=== PATIENT | female | born 1945 | race Caucasian/White ===

== ENCOUNTER → 2016-11-08 | Outpatient (CLI) | payer MEDICARE, BC ==
[~2016-11-08] MED LIST: NO HOME MEDICATIONS
== END ==
LOC: LAB 14:22
DX: J01.11 Acute recurrent frontal sinusitis (principal); R53.81 Other malaise; E55.9 Vitamin D deficiency, unspecified

== ENCOUNTER → 2017-07-31 | Outpatient (CLI) | payer MEDICARE, BC ==
[2012-01-16 14:30] VITALS: BP 140/69
== END ==
LOC: LAB 11:50
DX: I50.30 Unspecified diastolic (congestive) heart failure (principal); R23.2 Flushing

== ENCOUNTER → 2017-08-20 | Outpatient (CLI) | payer MEDICARE, BC ==
[2012-01-16 14:30] VITALS: BP 140/69
== END ==
LOC: LAB 11:46
DX: R19.7 Diarrhea, unspecified (principal)

== ENCOUNTER → 2017-08-27 | Outpatient (CLI) | payer MEDICARE, BC ==
[2012-01-16 14:30] VITALS: BP 140/69
== END ==
LOC: LAB 11:32
DX: R19.7 Diarrhea, unspecified (principal)

== ENCOUNTER → 2018-02-28 | Outpatient (CLI) | payer MEDICARE, BC ==
[~2018-02-28] VITALS: Ht 172.7 cm; Wt 68.2 kg
[2018-02-28 16:07] LABS: EOS % 0.8 % (1.0-5.0); HEMATOCRIT 41.5 % (37.0-47.0); HEMOGLOBIN 13.6 g/dL (12.5-16.0); LYMPH# 1.5 (1.50-4.00); MEAN CELL VOLUME 102 fl (78-100); MEAN CORPUSCULAR HEMOGLOBIN 33 pg (27-31); MEAN CORPUSCULAR HGB CONC 33 g/dL (33-37); MONO # 0.6 (0.20-0.80); NEU # 2.8 (1.40-6.50); PLATELET COUNT 134 K/mm3 (130-400); RED BLOOD COUNT 4.09 M/mm3 (4.10-5.30); RED CELL DISTRIBUTION WIDTH 13.5 % (11.5-14.5)
[2018-02-28 16:15] VITALS: BP 142/62
[2018-02-28 16:23] LABS: ALBUMIN 4.2 g/dL (3.5-5.0); BUN/CREATININE RATIO 38.4 (6.0-26.0); CALCIUM 9.5 mg/dL (8.4-10.2); POTASSIUM 4.4 mmol/L (3.6-5.0); TOTAL BILIRUBIN 0.3 mg/dL (0.2-1.3); TOTAL PROTEIN 7.2 g/dL (6.3-8.2)
== END ==
LOC: LAB 15:40
PROVIDERS: Nurse Practitioner Family
DX: I49.9 Cardiac arrhythmia, unspecified (principal); R07.89 Other chest pain; R09.89 Other specified symptoms and signs involving the circulatory and respiratory systems; R55 Syncope and collapse

== ENCOUNTER → 2018-03-28 | Outpatient (CLI) | payer MEDICARE, BC ==
[~2018-03-28] VITALS: Ht 172.7 cm; Wt 68.2 kg
[~2018-03-28] MED LIST changes: +ELIQUIS5 M1 PO; +METOPROLOL ER-1 EACH PO
[2018-03-28 15:21] VITALS: BP 126/74
== END ==
LOC: AMSURD 14:19
DX: I48.1 Persistent atrial fibrillation (principal)

== ENCOUNTER → 2018-04-04 | Outpatient (CLI) | payer MEDICARE, BC ==
[2018-03-28 15:21] VITALS: BP 126/74
[2018-04-04 15:50] LABS: BUN/CREATININE RATIO 28.4 (6.0-26.0); CALCIUM 8.6 mg/dL (8.4-10.2); POTASSIUM 4.5 mmol/L (3.6-5.0)
== END ==
LOC: LAB 04-01 13:51
PROVIDERS: Internal Medicine Cardiovascular Disease
DX: Z79.899 Other long term (current) drug therapy (principal)

== ENCOUNTER → 2018-07-12 | Outpatient (CLI) | payer MEDICARE, BC ==
[2018-03-28 15:21] VITALS: BP 126/74
== END ==
LOC: RAD 15:02
DX: S32.010A Wedge compression fracture of first lumbar vertebra, initial encounter for closed fracture (principal); M47.896 Other spondylosis, lumbar region; W19.XXXA Unspecified fall, initial encounter

== ENCOUNTER → 2018-07-22 | Outpatient (CLI) | payer MEDICARE, BC ==
[2018-03-28 15:21] VITALS: BP 126/74
== END ==
LOC: RAD 11:25
DX: S32.010A Wedge compression fracture of first lumbar vertebra, initial encounter for closed fracture (principal); W19.XXXA Unspecified fall, initial encounter

== ENCOUNTER → 2018-11-07 | Outpatient (CLI) | payer MEDICARE, BC ==
[2018-03-28 15:21] VITALS: BP 126/74
[2018-11-07 11:06] LABS: CALCIUM 9.1 mg/dL (8.4-10.2); POTASSIUM 4.4 mmol/L (3.6-5.0)
== END ==
LOC: LAB 10:42
PROVIDERS: Internal Medicine Cardiovascular Disease
DX: Z51.81 Encounter for therapeutic drug level monitoring (principal); Z79.899 Other long term (current) drug therapy; I48.1 Persistent atrial fibrillation

== ENCOUNTER → 2019-08-01 | Outpatient (CLI) | payer MEDICARE, BC ==
[2018-03-28 15:21] VITALS: BP 126/74
[2019-08-01 23:35] LABS: HEPATITIS C ANTIBODY Negative (Negative)
== END ==
LOC: LAB 14:20
PROVIDERS: Family Medicine
DX: Z13.220 Encounter for screening for lipoid disorders (principal); R74.0 Nonspecific elevation of levels of transaminase and lactic acid dehydrogenase [LDH]

== ENCOUNTER → 2019-08-04 | Outpatient (CLI) | payer MEDICARE, BC ==
[2018-03-28 15:21] VITALS: BP 126/74
== END ==
LOC: RAD 10:41
DX: D69.6 Thrombocytopenia, unspecified (principal)

== ENCOUNTER → 2019-08-15 | Outpatient (CLI) | payer MEDICARE, BC ==
[2018-03-28 15:21] VITALS: BP 126/74
[2019-08-15 11:52] LABS: POTASSIUM 4.4 mmol/L (3.5-5.1)
[2019-08-15 11:53] LABS: CALCIUM 8.4 mg/dL (8.3-10.5)
== END ==
LOC: LAB 11:19
PROVIDERS: Internal Medicine Cardiovascular Disease
DX: I48.20 Chronic atrial fibrillation, unspecified (principal); R60.9 Edema, unspecified

== ENCOUNTER → 2019-10-27 | Outpatient (CLI) | payer MEDICARE, BC ==
[2018-03-28 15:21] VITALS: BP 126/74
[2019-10-27 11:37] LABS: ALBUMIN 3.7 g/dL (3.4-4.8)
[2019-10-27 11:38] LABS: POTASSIUM 4.4 mmol/L (3.5-5.1)
[2019-10-27 11:40] LABS: TOTAL PROTEIN 5.9 g/dL (6.2-8.1)
[2019-10-27 11:42] LABS: TOTAL BILIRUBIN 0.8 mg/dL (0.2-1.2)
== END ==
LOC: LAB 11:19
PROVIDERS: Internal Medicine Cardiovascular Disease
DX: I48.91 Unspecified atrial fibrillation (principal); Z79.899 Other long term (current) drug therapy

== ENCOUNTER → 2020-05-13 | Outpatient (CLI) | payer MEDICARE, BC ==
[2018-03-28 15:21] VITALS: BP 126/74
== END ==
LOC: LAB 14:09
DX: N39.0 Urinary tract infection, site not specified (principal)

== ENCOUNTER → 2020-06-04 | Outpatient (CLI) | payer MEDICARE, BC ==
[2018-03-28 15:21] VITALS: BP 126/74
[2020-06-04 16:23] LABS: ALBUMIN 4.2 g/dL (3.4-4.8)
[2020-06-04 16:24] LABS: POTASSIUM 4.3 mmol/L (3.5-5.1)
[2020-06-04 16:25] LABS: CALCIUM 9.3 mg/dL (8.3-10.5)
[2020-06-04 16:26] LABS: TOTAL PROTEIN 6.9 g/dL (6.2-8.1)
[2020-06-04 16:28] LABS: TOTAL BILIRUBIN 0.5 mg/dL (0.2-1.2)
[2020-06-04 16:31] LABS: HEMATOCRIT 40.9 % (37.0-47.0); HEMOGLOBIN 13.3 g/dL (12.5-16.0); MEAN CELL VOLUME 103 fl (78-100); MEAN CORPUSCULAR HEMOGLOBIN 34 pg (27-31); MEAN CORPUSCULAR HGB CONC 33 g/dL (33-37); PLATELET COUNT 103 K/mm3 (130-400); RED BLOOD COUNT 3.97 M/mm3 (4.10-5.30); RED CELL DISTRIBUTION WIDTH 13.3 % (11.5-14.5); WHITE BLOOD COUNT 4.5 K/mm3 (4.8-10.8)
[2020-06-04 16:36] LABS: URINE APPEARANCE CLEAR; URINE COLOR YELLOW; URINE PROTEIN(semi-quant) TRACE mg/dL (NEGATIVE)
[2020-06-04 16:37] LABS: URINE BILIRUBIN NEGATIVE (NEGATIVE); URINE BLOOD NEGATIVE (NEGATIVE); URINE GLUCOSE NEGATIVE (NEGATIVE); URINE KETONE NEGATIVE (NEGATIVE); URINE LEUKOCYTE ESTERASE NEGATIVE (NEGATIVE); URINE MUCUS PRESENT (NOT PRESENT); URINE NITRATE NEGATIVE (NEGATIVE); URINE UROBILINOGEN NORMAL (NORMAL); URINE WBC 0-1 /hpf (0-3)
[2020-06-04 16:39] LABS: MEAN PLATELET VOLUME 12.4 fl (7.4-10.4)
[2020-06-04 16:40] LABS: LYMPHOCYTE 30 % (20-51); MONOCYTE 15 % (3-10); NEUTROPHILS 52 % (42-75)
== END ==
LOC: RAD 16:02
PROVIDERS: Nurse Practitioner
DX: R32 Unspecified urinary incontinence (principal); R19.7 Diarrhea, unspecified

== ENCOUNTER → 2020-06-10 | Outpatient (CLI) | payer MEDICARE, BC ==
[2018-03-28 15:21] VITALS: BP 126/74
== END ==
LOC: LAB 14:04
DX: R32 Unspecified urinary incontinence (principal); R19.7 Diarrhea, unspecified

== ENCOUNTER → 2020-06-14 | Outpatient (CLI) | payer MEDICARE, BC ==
[2018-03-28 15:21] VITALS: BP 126/74
== END ==
LOC: RAD 14:53
DX: K29.30 Chronic superficial gastritis without bleeding (principal)

== ENCOUNTER → 2021-10-04 | Outpatient (CLI) | payer MEDICARE, BC ==
[2021-10-04 16:11] LABS: ALBUMIN 3.7 g/dL (3.4-4.8)
[2021-10-04 16:12] LABS: CALCIUM 8.7 mg/dL (8.3-10.5)
[2021-10-04 16:15] LABS: TOTAL BILIRUBIN 0.6 mg/dL (0.2-1.2)
== END ==
LOC: LAB 15:41
PROVIDERS: Internal Medicine Cardiovascular Disease
DX: I48.19 Other persistent atrial fibrillation (principal); Z79.899 Other long term (current) drug therapy

== ENCOUNTER → 2022-08-24 | Outpatient (CLI) | payer MEDICARE, BC ==
[2022-08-24 17:55] LABS: HEMATOCRIT 39.1 % (37.0-47.0); HEMOGLOBIN 12.8 g/dL (12.5-16.0); MEAN CELL VOLUME 103 fl (78-100); MEAN CORPUSCULAR HEMOGLOBIN 34 pg (27-31); MEAN CORPUSCULAR HGB CONC 33 g/dL (33-37); MEAN PLATELET VOLUME 12.8 fl (7.4-10.4); PLATELET COUNT 68 K/mm3 (130-400); RED BLOOD COUNT 3.79 M/mm3 (4.10-5.30); RED CELL DISTRIBUTION WIDTH 13.1 % (11.5-14.5); WHITE BLOOD COUNT 2.5 K/mm3 (4.8-10.8)
[2022-08-24 18:12] LABS: ALBUMIN 3.8 g/dL (3.4-4.8); POTASSIUM 4.2 mmol/L (3.5-5.1); SODIUM 142 mmol/L (136-145)
[2022-08-24 18:13] LABS: CALCIUM 8.6 mg/dL (8.3-10.5)
[2022-08-24 18:15] LABS: GLUCOSE 105 mg/dL (65-105)
[2022-08-24 18:16] LABS: CARBON DIOXIDE 26 mmol/L (23-31); TOTAL BILIRUBIN 0.8 mg/dL (0.2-1.2)
[2022-08-24 18:20] LABS: AST-SGOT 43 U/L (5-34)
[2022-08-24 18:21] LABS: ALT/SGPT 32 U/L (0-55)
[2022-08-24 18:35] LABS: TROPONIN-I < 0.030 ng/mL (<0.030)
[2022-08-25 01:42] LABS: LYMPHOCYTE 58 % (20-51); MONOCYTE 14 % (3-10); NEUTROPHILS 28 % (42-75)
[2022-08-25 01:43] LABS: OVALOCYTES 1+
== END ==
LOC: LAB 17:38
PROVIDERS: Nurse Practitioner
DX: U07.1 COVID-19 (principal); R53.83 Other fatigue

== ENCOUNTER → 2022-08-25 | Outpatient (CLI) | payer MEDICARE, BC ==
[2022-08-25 22:54] LABS: FOLATE (FOLIC ACID) 11.5 ng/mL (2.0-20.0)
== END ==
LOC: LAB 14:00
PROVIDERS: Nurse Practitioner
DX: D53.9 Nutritional anemia, unspecified (principal)

== ENCOUNTER → 2023-08-08 | Outpatient (CLI) | payer MEDICARE, BC ==
[~2023-08-08] MED LIST changes: +AMLODIPINE BESYL5 MG PO; +ELIQUIS5 MG PO; +FUROSEMIDE40 MG; +NORCO 325 MG-51 TA1 PO; +SOTALOL HCL120 MG PO
[2023-08-08 11:12] LABS: BASO # 0.05 K/mm3 (0.02-0.10); EOS # 0.06 K/mm3 (0.04-0.40); EOS % 1.7 % (1.0-5.0); HEMATOCRIT 36.9 % (37.0-47.0); LYMPH# 1.21 K/mm3 (1.50-4.00); MEAN CELL VOLUME 103 fl (78-100); MEAN CORPUSCULAR HEMOGLOBIN 34 pg (27-31); MEAN CORPUSCULAR HGB CONC 33 g/dL (33-37); MEAN PLATELET VOLUME 11.6 fl (7.4-10.4); MONO # 0.58 K/mm3 (0.20-0.80); NEU # 1.57 K/mm3 (1.40-6.50); PLATELET COUNT 125 K/mm3 (130-400); RED BLOOD COUNT 3.57 M/mm3 (4.10-5.30); RED CELL DISTRIBUTION WIDTH 12.8 % (11.5-14.5); WHITE BLOOD COUNT 3.5 K/mm3 (4.8-10.8)
[2023-08-08 11:43] LABS: ALBUMIN 3.9 g/dL (3.4-4.8); POTASSIUM 4.4 mmol/L (3.5-5.1)
[2023-08-08 11:44] LABS: CALCIUM 9.3 mg/dL (8.3-10.5)
[2023-08-08 11:46] LABS: TOTAL PROTEIN 6.7 g/dL (6.2-8.1)
[2023-08-08 11:47] LABS: TOTAL BILIRUBIN 0.6 mg/dL (0.2-1.2)
== END ==
LOC: LAB 10:41
PROVIDERS: Family Medicine
DX: Z00.00 Encounter for general adult medical examination without abnormal findings (principal); Z12.31 Encounter for screening mammogram for malignant neoplasm of breast; Z13.820 Encounter for screening for osteoporosis; E78.5 Hyperlipidemia, unspecified; E55.9 Vitamin D deficiency, unspecified

== ENCOUNTER 2024-01-16 12:09 | Emergency (ER) | payer MEDICARE, BC ==
[~2024-01-16] VITALS: Ht 172.7 cm; Wt 75.4 kg
[~2024-01-16 12:09] MED LIST changes: +ALDACTONE 25MG25 MG PO; +AMIODARONE200 MG PO; +LASIX40 M1 PO
[2024-01-16 13:19] LABS: BASO # 0.06 K/mm3 (0.02-0.10); HEMATOCRIT 37.6 % (37.0-47.0); HEMOGLOBIN 12.7 g/dL (12.5-16.0); LYMPH# 2.32 K/mm3 (1.50-4.00); MEAN CELL VOLUME 98 fl (78-100); MEAN CORPUSCULAR HEMOGLOBIN 33 pg (27-31); MEAN CORPUSCULAR HGB CONC 34 g/dL (33-37); MEAN PLATELET VOLUME 10.8 fl (7.4-10.4); MONO # 0.65 K/mm3 (0.20-0.80); NEU # 3.29 K/mm3 (1.40-6.50); PLATELET COUNT 307 K/mm3 (130-400); RED BLOOD COUNT 3.85 M/mm3 (4.10-5.30); WHITE BLOOD COUNT 6.3 K/mm3 (4.8-10.8)
[2024-01-16 13:26] LABS: ALBUMIN 4.2 g/dL (3.4-4.8); SODIUM 137 mmol/L (136-145)
[2024-01-16 13:27] LABS: CALCIUM 10.5 mg/dL (8.3-10.5)
[2024-01-16 13:28] LABS: GLUCOSE 92 mg/dL (65-105); TOTAL PROTEIN 8.9 g/dL (6.2-8.1)
[2024-01-16 13:29] LABS: CARBON DIOXIDE 19 mmol/L (23-31)
[2024-01-16 13:30] LABS: TOTAL BILIRUBIN 1.2 mg/dL (0.2-1.2)
[2024-01-16 13:34] LABS: AST-SGOT 22 U/L (5-34)
[2024-01-16 13:35] LABS: ALT/SGPT 21 U/L (0-55)
[2024-01-16 13:41] LABS: TROPONIN-I < 0.030 ng/mL (0.00-0.033)
[2024-01-16] MEDS ORDERED: PREDNISONE20 MG PO (14:23)
[2024-01-16] MEDS ORDERED: methylPREDNISolone Sod Succ 125 MG/2 ML VIAL IV ONE (14:30)
[2024-01-16 14:36] VITALS: BP 116/80
[2024-01-24] MEDS ORDERED: ROPINIROLE HY0.25 MG PO (13:32)
[2024-01-24] MEDS ORDERED: PREDNISONE20 M1 PO (13:33)
[2024-01-24] MEDS ORDERED: PACERONE400 MG PO (13:34)
[2024-01-24] MEDS ORDERED: AMIODARONE200 MG PO (13:34)
[2024-01-24] MEDS ORDERED: VITAMIN D3125 MC1 PO (13:38)
[2024-01-24] MEDS ORDERED: VOLTAREN ARTHRI20 GM TP (13:39)
== END 2024-01-16 15:10 | disposition home or self-care (01) ==
LOC: ED 12:09
PROVIDERS: Family Medicine
DX: L03.116 Cellulitis of left lower limb (principal)
CPT/HCPCS: J2930

== ENCOUNTER → 2024-04-10 | Outpatient (CLI) | payer MEDICARE, BC ==
[~2024-04-10] MED LIST changes: +AMOXICILLIN AND1 TA2 PO; +PACERONE400 MG PO; +PREDNISONE20 M1 PO; +PREDNISONE20 MG PO; +ROPINIROLE HY0.25 MG PO; +TERBINAFINE HCL30 GM TP; +VITAMIN D3125 MC1 PO; +VOLTAREN ARTHRI20 GM TP
[2024-04-10 11:29] LABS: ALBUMIN 4.2 g/dL (3.4-4.8)
[2024-04-10 11:31] LABS: CALCIUM 9.4 mg/dL (8.3-10.5)
[2024-04-10 11:32] LABS: TOTAL PROTEIN 6.9 g/dL (6.2-8.1)
[2024-04-10 11:34] LABS: TOTAL BILIRUBIN 0.7 mg/dL (0.2-1.2)
== END ==
LOC: LAB 11:15
PROVIDERS: Nurse Practitioner
DX: R60.0 Localized edema (principal)

== ENCOUNTER → 2024-06-27 | Outpatient (CLI) | payer MEDICARE, BC | LOC: RAD 08:40 | DX: R22.42 Localized swelling, mass and lump, left lower limb (principal) ==

== ENCOUNTER → 2024-12-03 | Outpatient (CLI) | payer MEDICARE, BC ==
[2024-12-03 14:08] LABS: BASO # 0.03 K/mm3 (0.02-0.10); EOS # 0.15 K/mm3 (0.04-0.40); EOS % 2.3 % (1.0-5.0); HEMATOCRIT 33.4 % (37.0-47.0); HEMOGLOBIN 10.8 g/dL (12.5-16.0); LYMPH# 0.99 K/mm3 (1.50-4.00); MEAN CELL VOLUME 101 fl (78-100); MEAN CORPUSCULAR HEMOGLOBIN 33 pg (27-31); MEAN CORPUSCULAR HGB CONC 32 g/dL (33-37); MEAN PLATELET VOLUME 10.1 fl (7.4-10.4); MONO # 0.87 K/mm3 (0.20-0.80); NEU # 4.59 K/mm3 (1.40-6.50); PLATELET COUNT 272 K/mm3 (130-400); RED BLOOD COUNT 3.31 M/mm3 (4.10-5.30); RED CELL DISTRIBUTION WIDTH 12.9 % (11.5-14.5); WHITE BLOOD COUNT 6.7 K/mm3 (4.8-10.8)
[2024-12-03 14:19] LABS: ALBUMIN 3.7 g/dL (3.4-4.8)
[2024-12-03 14:21] LABS: CALCIUM 8.9 mg/dL (8.3-10.5)
[2024-12-03 14:22] LABS: TOTAL PROTEIN 7.1 g/dL (6.2-8.1)
[2024-12-03 14:24] LABS: TOTAL BILIRUBIN 0.9 mg/dL (0.2-1.2)
[2024-12-03 14:56] LABS: URINE COLOR YELLOW (YELLOW)
[2024-12-03 14:57] LABS: URINE APPEARANCE CLEAR (CLEAR); URINE BILIRUBIN 1+ (NEGATIVE); URINE BLOOD TRACE-INTACT (NEGATIVE); URINE GLUCOSE NEGATIVE (NEGATIVE); URINE KETONE NEGATIVE (NEGATIVE); URINE LEUKOCYTE ESTERASE NEGATIVE (NEGATIVE); URINE MUCUS PRESENT (NOT PRESENT); URINE NITRATE NEGATIVE (NEGATIVE); URINE PROTEIN(semi-quant) 1+ (NEGATIVE); URINE WBC 0-1 /hpf (0-3)
== END ==
LOC: LAB 13:46
PROVIDERS: Nurse Practitioner
DX: R68.89 Other general symptoms and signs (principal); R53.81 Other malaise; E55.9 Vitamin D deficiency, unspecified

== ENCOUNTER → 2025-01-12 | Outpatient (CLI) | payer MEDICARE, BC | LOC: RAD 13:04 | DX: J18.1 Lobar pneumonia, unspecified organism (principal); J90 Pleural effusion, not elsewhere classified; R91.8 Other nonspecific abnormal finding of lung field; R59.0 Localized enlarged lymph nodes; R79.9 Abnormal finding of blood chemistry, unspecified ==

== ENCOUNTER → 2025-01-16 | Outpatient (CLI) | payer MEDICARE, BC ==
[2025-01-16 11:20] LABS: ALBUMIN 3.5 g/dL (3.4-4.8)
[2025-01-16 11:22] LABS: CALCIUM 9.1 mg/dL (8.3-10.5)
[2025-01-16 11:23] LABS: TOTAL PROTEIN 7.6 g/dL (6.2-8.1)
[2025-01-16 11:25] LABS: TOTAL BILIRUBIN 0.9 mg/dL (0.2-1.2)
[2025-01-16 11:26] LABS: BASO # 0.02 K/mm3 (0.02-0.10); EOS % 1.3 % (1.0-5.0); HEMATOCRIT 33.3 % (37.0-47.0); HEMOGLOBIN 10.8 g/dL (12.5-16.0); LYMPH# 1.35 K/mm3 (1.50-4.00); MEAN CELL VOLUME 97 fl (78-100); MEAN CORPUSCULAR HEMOGLOBIN 32 pg (27-31); MEAN CORPUSCULAR HGB CONC 32 g/dL (33-37); MEAN PLATELET VOLUME 10.6 fl (7.4-10.4); MONO # 0.94 K/mm3 (0.20-0.80); NEU # 5.21 K/mm3 (1.40-6.50); PLATELET COUNT 341 K/mm3 (130-400); RED BLOOD COUNT 3.42 M/mm3 (4.10-5.30); RED CELL DISTRIBUTION WIDTH 14.1 % (11.5-14.5); WHITE BLOOD COUNT 7.7 K/mm3 (4.8-10.8)
== END ==
LOC: LAB 10:56
PROVIDERS: Nurse Practitioner
DX: J18.1 Lobar pneumonia, unspecified organism (principal)